=== PATIENT | male | born 1955 ===

== ENCOUNTER 2017-01-14 08:34 | Day surgery (SDC) | payer MEDICARE ==
[2015-11-27 09:33] VITALS: BMI 29.0
[2017-01-14] MEDS ORDERED: Lactated Ringer's 500 ML IV ONE (08:53)
[2017-01-14] MEDS ORDERED: Propofol 10 mg/ml Inj (20 ML) ONE (10:19)
[2017-01-14 10:46] VITALS: TEMP 97
[2017-01-14 11:00] VITALS: BP 141/88; PULSE 80; RESP 17; O2SAT 99
== END 2017-01-14 11:30 | disposition home or self-care (01) ==
LOC: H.ENDO 08:34
PROVIDERS: ATTEND Internal Medicine Gastroenterology
DX: K92.2 Gastrointestinal hemorrhage, unspecified (principal); J45.909 Unspecified asthma, uncomplicated; E11.9 Type 2 diabetes mellitus without complications; K64.8 Other hemorrhoids
CPT/HCPCS: 45378; 82948; J2704; J7120